=== PATIENT | male | born 1985 | race Hispanic/Latino ===

== ENCOUNTER 2021-09-02 23:29 | Emergency (ER) | payer SELFPAY ==
[2021-09-03 00:11] LABS: Bilirubin Negative (Negative); Blood, Urine Trace (Negative); Clarity Clear (Clear); Glucose, Urine (Dipstick) Negative (Negative); Ketone, Urine Negative (Negative); Leukocyte Negative (Negative); Nitrite Negative (Negative); Protein, Urine (Dipstick) Negative (Neg-Trace); Urobilinogen 0.2 mg/dL (Less than 2); pH, Urine 6.5 (5.0-9.0)
[2021-09-03 00:13] LABS: Bacteria/HPF None Seen HPF (None Seen); RBC/HPF None Seen HPF (0-3); Squamous Epithelial None Seen HPF (0-3); WBC/HPF None Seen HPF (0-3)
== END 2021-09-03 00:35 | disposition home or self-care (01) ==
LOC: NAV ERS 23:29
DX: B35.6 Tinea cruris (principal)
CPT/HCPCS: 36416; 81003; 81015; 99283